=== PATIENT | female | born 1970 | race Caucasian/White ===

== ENCOUNTER 2017-02-15 19:27 | Emergency (ER) | payer BC, OTHER ==
[~2017-02-15] VITALS: Ht 162.6 cm; Wt 58.4 kg
[~2017-02-15 19:27] MED LIST: AZIT250T94 PO; FLUT9.9S NASAL; IBUP800T25 PO
[2017-02-15 19:52] VITALS: Ht 162.6 cm; Wt 58.4 kg
[2017-02-15] MEDS ORDERED: LIDOCAINE/MYLANTA 40 ML BTL PO STA (21:40)
--- NOTE | 2017-02-15 22:27 | RADRPT ---
PROCEDURE: XR Chest. CLINICAL INDICATION: Dyspnea. TECHNIQUE: Single frontal view of the chest. COMPARISON: 08/27/2014. FINDINGS: The cardiomediastinal silhouette is within normal limits. The lungs are clear. Interval resolution o f left lung base atelectasis versus airspace disease. No signs of pleural fluid or pneumothorax are seen. The osseous structures and soft tissues are unremarkable. IMPRESSION: No evidence for active cardiopulmonary disease. RPTAT: [facility] Physician Marquise Date Time Electronically viewed and signed by Physician Marquise on 02/15/2017 22:27 RS/
[2017-02-15] MEDS ORDERED: EPIN0.3P4 INJ (22:31)
--- NOTE | 2017-02-15 22:45 | RADRPT ---
PROCEDURE: Soft tissue neck CLINICAL INDICATION: Shortness of breath TECHNIQUE: AP and lateral views of the neck soft tissues are obtained COMPARISON: None available FINDINGS: The hypopharynx is normal in caliber. The epiglottis is unremarkable. The area of the larynx and l aryngeal ventricles is normal. The tracheal airway is unremarkable. The prevertebral soft tissues are within limits of normal. The osseous structures are intact. RPTAT:HJJR IMPRESSION: Normal soft tissue neck exam. Physician Nicho Date Time Electronically viewed and signed by Physician Nicho on 02/15/2017 22:45 /
--- NOTE | 2017-02-24 06:36 | ERD ---
ER Documentation Chief Complaint Chief Complaint eating zac[place] law an hour ago;feeling throat closed;pt not in distress HPI This is a 46-year-old female presenting to the emergency department complaining of feeling as if her throat was closing and having a period of shortness of breath and hour ago after eating a chili dog. Patient states that it fully resolved. Patient presents right now because she states that she was worried that she was allergic to the chili dog, she denies choking. Patient did not take any pain medication ROS All systems reviewed and are negative except as per history of present illness. Medications Home Meds Active Scripts Epinephrine (Epipen 2-Mikey) 0.3 Mg/0.3 Ml Pen.injctr, 1 EA INJ ONCE Y for ALLERGIC REACTION, #1 EA Prov:PEG IBRAHIM PA-C 02/15/17 Fluticasone Propionate (Flonase Allergy Relief) 9.9 Ml [place].susp, 1 SPRAY NASAL BID for 5 Days, BOTTLE TO EACH NOSTRIL Prov:YONATAN MONTES MD 04/03/15 Ibuprofen* (Motrin*) 800 Mg Tab, 800 MG PO Q6H Y for PAIN AND OR ELEVATED TEMP, #30 TAB Prov:YONATAN MONTES MD 04/03/15 Azithromycin* (Zithromax*) 250 Mg Tablet, 250 MG PO .ZPACK DIRECTED, #6 TAB TAKE 500 MG (2 TABS) THE FIRST DAY THEN 250 MG (1 TAB) DAYS 2-5 Prov:YONATAN MONTES MD 04/03/15 Allergies Allergies: Coded Allergies: Shellfish (Verified Allergy, Unknown, ANAPHYLACTIC SHOCK, 04/03/15) iodine (Verified Allergy, Unknown, 04/03/15) PMhx/Soc Medical and Surgical Hx: pt denies Medical Hx, pt denies Surgical Hx History of Surgery: No Anesthesia Reaction: No Hx Neurological Disorder: No Hx Respiratory Disorders: No Hx Cardiac Disorders: No Hx Psychiatric Problems: No Hx Miscellaneous Medical Probl: Yes (RAMIREZ chronic; gastritis) Hx Alcohol Use: No Hx Substance Use: No Hx Tobacco Use: No Smoking Status: Never smoker Physical Exam Physical Exam Const: Top well-nourished no acute distress Head: Atraumatic Eyes: Normal Conjunctiva ENT: Normal External Ears, Nose and Mouth. Neck: Full range of motion..~ No meningismus. Resp: Clear to auscultation bilaterally Cardio: Regular rate and rhythm, no murmurs Abd: Soft, non tender, non distended. Normal bowel sounds Skin: No petechiae or rashes Back: No midline or flank tenderness Ext: No cyanosis, or edema Neur: Awake and alert Psych: Normal Mood and Affect Results 24 hrs Current Medications Medications (Trade) Dose Ordered Sig/Baron Route PRN Reason Start Time Stop Time Status Last Admin Dose Admin Miscellaneous Medication (Gi Cocktail (2)) 40 ml ONCE STAT PO 02/15/17 21:40 02/15/17 21:42 DC 02/15/17 21:48 Procedures/MDM This is a 46-year-old female presenting to the emergency department stating that she felt as if her throat was closing right after she ate a chili dog. On examination, patient has normal vital signs. She appears well, speaking clearly ambulating well. She has a normal neurological exam. There was no evidence of anaphylaxis, affixation or acute pathology. Patient likely had gastritis. In the ED she was given GI cocktail and had relief. Chest and neck X-rays were done for therapeutic reasons, did not show any evidence of acute pathology. Patient states that a few years ago she had an anaphylaxis reaction to a food and has been worried ever since then. Patient was given prescription for epinephrine pen for the future. She stable to be discharged home to follow- up with her primary care physician. Departure Diagnosis: Primary Impression: Shortness of breath Condition: Stable Patient Instructions: Understanding Dysphagia, Coping with Shortness of Breath : Controlling Stress, Anaphylaxis, General, Dyspnea Referrals: [facility],DEANNE ZAZUETA,MILENA CORDOVA,JAD GONCALVES,TANISHA KAMINSKI,PARAM CHAVEZ,TONIA Corey MD Additional Instructions: Visite a krysten lopez para un EXAMEN.Regrese a estas instalaciones si no se mejora manuela esperbamos o manuela le dijimos. Ferney toda la medicina [place] y manuela se le indic. Regrese a estas instalaciones si no se mejora manuela esperbamos o manuela le dijimos. PEG IBRAHIM PA-C Feb 24, 2017 06:35
== END 2017-02-15 23:30 | disposition home or self-care (01) ==
LOC: FTE 19:27
DX: R06.02 Shortness of breath (principal)
CPT/HCPCS: 70360; 71010

== ENCOUNTER 2017-03-31 17:44 | Emergency (ER) | END 2017-03-31 18:03 | disposition home or self-care (01) ==

== ENCOUNTER 2017-06-06 15:40 | Emergency (ER) | END 2017-06-06 20:51 | disposition home or self-care (01) ==

== ENCOUNTER 2017-12-02 19:19 | Emergency (ER) | END 2017-12-02 21:20 | disposition home or self-care (01) ==